=== PATIENT | female | born 1945 | race Caucasian/White ===

== ENCOUNTER → 2016-12-15 10:38 | Outpatient (CLI) | payer MEDICARE ==
[2016-01-28 06:18] VITALS: BMI 21.6
[~2016-12-15 10:38] MED LIST: AGGRENOX 200/251 CAP PO; ANOLOR-300 CAPS1 CAP PO; ASPIRIN EC325 M1 PO; BENTYL 20 MG TA20 MG PO; BREO ELLIPTA 11 EACH INH; COMBIVENT RESPIM4 GM INH; COZAAR50 MG PO; DEMEROL50 MG PO; FERREX 150 PLUS1 CAP PO; IBUPROFEN800 MG PO; IMITREX50 MG PO; LEVAQUIN750 MG PO; LEXAPRO10 MG PO; LIDOCAINE50 GM TOPICAL; LIPITOR20 MG PO; MELATONIN 10 M1 EACH PO; NICODERM C1 PATCH .2 TRANSDERM; NORVASC10 MG PO; PEPCID40 MG PO; PHENERGAN25 M1 PO; PRILOSEC20 MG PO; ROXICODONE30 MG PO; SPIRIVA18 MCG INH; TEGRETOL200 MG PO; TOPAMAX50 MG PO; TRIAMCINOLONE A60 M1 TP; VITAMIN C1000 MG PO; VITAMIN D31000 UNI2 PO; XANAX1 MG PO; ZANAFLEX4 MG PO; ZYRTEC10 MG PO
== END | disposition home or self-care (01) ==
LOC: D.MRI 10:38
DX: G43.019 Migraine without aura, intractable, without status migrainosus (principal)

== ENCOUNTER → 2017-01-08 13:05 | Outpatient (CLI) | payer MEDICARE ==
[2016-01-28 06:18] VITALS: BMI 21.6
== END | disposition home or self-care (01) ==
LOC: D.MRI 13:05
DX: M54.2 Cervicalgia (principal)

== ENCOUNTER 2017-02-05 21:35 | Emergency (ER) | payer MEDICARE ==
[2016-01-28 06:18] VITALS: BMI 21.6
[~2017-02-05 21:35] MED LIST changes: -ANOLOR-300 CAPS1 CAP PO; -FERREX 150 PLUS1 CAP PO; -IMITREX50 MG PO; -LEVAQUIN750 MG PO; -LIDOCAINE50 GM TOPICAL; -NICODERM C1 PATCH .2 TRANSDERM; -TOPAMAX50 MG PO; -VITAMIN D31000 UNI2 PO; -ZANAFLEX4 MG PO
[2017-02-05 22:53] LABS: BASOPHILS 0.1 % (0.0-2.0); EOSINOPHILS 0.3 % (0-7); HEMATOCRIT 36.2 % (36.0-48.0); IMMATURE GRANULOCYTES 0.1 % (0-5); MCH 28.8 pg (26.0-34.0); MCHC 33.1 g/dL (31.0-37.0); MCV 86.8 fL (80.0-100.0); MEAN PLATELET VOLUME 9.4 fL (7.4-10.4); MONOCYTES 8.1 % (2-11); NEUTROPHILS 81.4 % (40-80); RBC 4.17 10x6/uL (4.00-5.40); WBC 7.8 10x3/uL (4.8-10.8)
[2017-02-05 23:09] LABS: ALBUMIN 3.2 g/dL (3.4-5.0); ALKALINE PHOSPHATASE 137 U/L (46-116); ALT (SGPT) 34 U/L (10-68); BILIRUBIN - TOTAL 0.21 mg/dL (0.2-1.3); CALC OSMOLALITY 275 mosm/kg (275-300); CALCIUM 8.5 mg/dL (8.5-10.1); CARBON DIOXIDE 23.4 mmol/L (21.0-32.0); CHLORIDE - SERUM 104 mmol/L (98-107); CREATININE - SERUM 1.1 mg/dL (0.6-1.3); GLUCOSE 104 mg/dL (74-106); POTASSIUM - SERUM 3.7 mmol/L (3.5-5.1); SODIUM 137 mmol/L (136-145); UREA NITROGEN 17 mg/dL (7-18); eGFR NON AFRICAN AMERICAN 52 mL/min (90-120)
[2017-02-05 23:12] LABS: PLATELET COUNT 193 10x3/uL (130-400)
[2017-02-05 23:18] LABS: PRO BNP 1406 pg/mL (0-125); TROPONIN-I < 0.017 ng/mL (0.000-0.060)
[2017-02-05 23:45] LABS: APPEARANCE CLEAR (CLEAR); BILIRUBIN NEGATIVE (NEGATIVE); COLOR YELLOW (YELLOW); GLUCOSE NEGATIVE (NEGATIVE); KETONE NEGATIVE (NEGATIVE); LEUKOCYTE ESTERASE TRACE (NEGATIVE); NITRITE NEGATIVE (NEGATIVE); PROTEIN 1+ mg/dL (NEGATIVE); UROBILINOGEN NORMAL (NORMAL)
[2017-02-05 23:49] LABS: AMORPHOUS SEDIMENT <1+ /lpf (NONE SEEN); BACTERIA FEW /hpf (NONE SEEN); EPITHELIAL CELLS OCC /hpf (0-5); GRANULAR CAST RARE /lpf (NONE SEEN); HYALINE CAST OCC /lpf (NONE SEEN); MUCUS <1+ /lpf (NONE SEEN); WHITE CELLS - URINE 0-5 /hpf (0-5)
== END 2017-02-06 00:24 | disposition home or self-care (01) ==
LOC: D.ER 21:35
PROVIDERS: Family Medicine
DX: B34.9 Viral infection, unspecified (principal); J44.9 Chronic obstructive pulmonary disease, unspecified; K21.9 Gastro-esophageal reflux disease without esophagitis; C51.9 Malignant neoplasm of vulva, unspecified

== ENCOUNTER 2017-02-11 19:52 | Emergency (ER) | payer MEDICARE ==
[2016-01-28 06:18] VITALS: BMI 21.6
[2017-02-11 21:01] LABS: BASOPHILS 0.1 % (0.0-2.0); EOSINOPHILS 0.8 % (0-7); HEMATOCRIT 35.2 % (36.0-48.0); HEMOGLOBIN 11.9 g/dL (12-16); IMMATURE GRANULOCYTES 0.2 % (0-5); LYMPHOCYTES 5.9 % (15-50); MCH 29.3 pg (26.0-34.0); MCHC 33.8 g/dL (31.0-37.0); MCV 86.7 fL (80.0-100.0); MEAN PLATELET VOLUME 9.6 fL (7.4-10.4); MONOCYTES 6.1 % (2-11); NEUTROPHILS 86.9 % (40-80); RBC 4.06 10x6/uL (4.00-5.40); RDW 15.2 % (11.5-14.5); WBC 13.7 10x3/uL (4.8-10.8)
[2017-02-11 21:03] LABS: PLATELET COUNT 288 10x3/uL (130-400)
== END 2017-02-11 21:39 | disposition home or self-care (01) ==
LOC: D.ER 19:52
PROVIDERS: Nurse Practitioner Acute Care
DX: J44.1 Chronic obstructive pulmonary disease with (acute) exacerbation (principal); K21.9 Gastro-esophageal reflux disease without esophagitis; N28.9 Disorder of kidney and ureter, unspecified; C51.9 Malignant neoplasm of vulva, unspecified; F17.200 Nicotine dependence, unspecified, uncomplicated

== ENCOUNTER 2017-02-13 06:55 | Inpatient (IN) | payer MEDICARE ==
[~2017-02-13] VITALS: Ht 165.1 cm; Wt 55.9 kg
[2017-02-13 10:29] LABS: BASOPHILS 0.1 % (0.0-2.0); EOSINOPHILS 0.1 % (0-7); HEMATOCRIT 31.9 % (36.0-48.0); HEMOGLOBIN 10.6 g/dL (12-16); IMMATURE GRANULOCYTES 0.3 % (0-5); LYMPHOCYTES 3.5 % (15-50); MCH 28.9 pg (26.0-34.0); MCHC 33.2 g/dL (31.0-37.0); MCV 86.9 fL (80.0-100.0); MEAN PLATELET VOLUME 9.4 fL (7.4-10.4); MONOCYTES 3.5 % (2-11); NEUTROPHILS 92.5 % (40-80); PLATELET COUNT 424 10x3/uL (130-400); RBC 3.67 10x6/uL (4.00-5.40); RDW 14.9 % (11.5-14.5); WBC 21.1 10x3/uL (4.8-10.8)
[2017-02-13 10:37] LABS: ALBUMIN 2.8 g/dL (3.4-5.0); BILIRUBIN - TOTAL 0.35 mg/dL (0.2-1.3); CALCIUM 9.1 mg/dL (8.5-10.1); CARBON DIOXIDE 23.6 mmol/L (21.0-32.0); POTASSIUM - SERUM 3.6 mmol/L (3.5-5.1); PROTEIN - SERUM 7.7 g/dL (6.4-8.2)
[2017-02-13] MEDS ORDERED: IMITREX50 MG PO (13:25)
[2017-02-13] MEDS ORDERED: ANOLOR-300 CAPS1 CAP PO (13:26)
[2017-02-13] MEDS ORDERED: LIPITOR20 MG PO (13:27)
[2017-02-13] MEDS ORDERED: ZANAFLEX4 MG PO (13:27)
[2017-02-13] MEDS ORDERED: LIDOCAINE50 GM TOPICAL (13:28)
[2017-02-13] MEDS ORDERED: LEXAPRO10 MG PO (13:32)
[2017-02-13] MEDS ORDERED: TOPAMAX50 MG PO (13:34)
[2017-02-13] MEDS ORDERED: VITAMIN D31000 UNI2 PO (13:34)
[2017-02-13] MEDS ORDERED: LEVAQUIN750 MG PO (13:36)
[2017-02-13 14:32] VITALS: BP 127/83; BMI 22.5
--- NOTE | 2017-02-13 15:20 | NUR ---
ARRIVE TO ROOM VIA WHEELCHAIR FROM ER. ALERT AND ORIENTED X4. HOME MEDICATIONS TAKEN IN ER PER ER DOCTOR. LT FA IV SL. BATES. GAIT STEADY. MED REC COMPLETE PER PATIENT HOME PRINTOUT. REFUSE SCDs. CONTINUE ADMISSION PROCESS. CONTINUE PLAN OF CARE AND SAFETY PRECAUTIONS.
[2017-02-13 16:18] VITALS: BP 154/79
[2017-02-13 19:11] LABS: % SATURATION 7 % (15-55); IRON 19 ug/dl (35-150); TOTAL IRON BIND CAPACITY 264 ug/dl (260-445); UNSAT IRON BIND CAPACITY 245 ug/dl (150-375)
--- NOTE | 2017-02-13 19:40 | NUR ---
PT RECEIVED LYING IN BED WITH FAMILY AT BEDSIDE AT THIS TIME. ASSESSMENT COMPLETED PER FLOW SHEET AT THIS TIME. PT DENIES NEEDS AT THIS TIME. BED LOW. PHONE AND CALL LIGHT IN REACH. SRX2.
[2017-02-13 20:00] VITALS: BP 141/62
--- NOTE | 2017-02-13 21:55 | NUR ---
PM MEDS GIVEN AT THIS TIME. PT DENIES NEEDS AT THIS TIME. BED LOW. PHONE AND CALL LIGHT IN REACH. SRX2.
[2017-02-14] VITALS: BP 117/71
--- NOTE | 2017-02-14 00:35 | NUR ---
PT RESTING QUIETLY AT THIS TIME WITH EYES CLOSED. RESPIRATIONS EVEN, NON-LABORED. NO ACUTE DISTRESS NOTED AT THIS TIME. BED LOW. PHONE AND CALL LIGHT IN REACH. SRX2.
--- NOTE | 2017-02-14 02:18 | NUR ---
PT RESTING QUIETLY AT THIS TIME WITH EYES CLOSED. RESPIRATIONS EVEN, NON-LABORED. NO ACUTE DISTRESS NOTED AT THIS TIME. BED IN LOWEST. PHONE AND CALL LIGHT IN REACH. SRX2.
--- NOTE | 2017-02-14 02:41 | NUR ---
PT SITTING UP IN BED WITH FAMILY AT BEDSIDE. REQUESTS ICE WATER AND SPRITE. ADMINISTERED SOLU-MEDROL IVP PER ORDERS AT THIS TIME. DENIES OTHER NEEDS. BED LOW. PHONE AND CALL LIGHT IN REACH. SRX2.
[2017-02-14 04:00] VITALS: BP 116/73
[2017-02-14 04:39] LABS: BASOPHILS 0 % (0.0-2.0); EOSINOPHILS 0 % (0-7); HEMATOCRIT 31.8 % (36.0-48.0); HEMOGLOBIN 10.6 g/dL (12-16); IMMATURE GRANULOCYTES 0.2 % (0-5); LYMPHOCYTES 5.8 % (15-50); MCH 28.6 pg (26.0-34.0); MCHC 33.3 g/dL (31.0-37.0); MCV 85.9 fL (80.0-100.0); MEAN PLATELET VOLUME 9.2 fL (7.4-10.4); MONOCYTES 6.1 % (2-11); NEUTROPHILS 87.9 % (40-80); PLATELET COUNT 349 10x3/uL (130-400); RDW 14.5 % (11.5-14.5)
[2017-02-14 05:03] LABS: WBC 12.6 10x3/uL (4.8-10.8)
[2017-02-14 05:22] LABS: ANION GAP 14.3 mmol/L (8-16); CALCIUM 8.9 mg/dL (8.5-10.1); CREATININE - SERUM 1.1 mg/dL (0.6-1.3); POTASSIUM - SERUM 3.3 mmol/L (3.5-5.1)
--- NOTE | 2017-02-14 06:00 | NUR ---
ADMINISTERED AM MEDS AT THIS TIME. PT REFUSED TOPIRAMATE. STATES SHE HAD 3 SEIZURES AFTER STARTING TOPIRMATE. ADDED TO HER ALLERGY LIST AT THIS TIME. PT DENIES NEEDS AT THIS TIME. BED LOW. PHONE AND CALL LIGHT IN REACH. SRX2.
[2017-02-14 08:00] VITALS: BP 161/80
[2017-02-14 12:00] VITALS: BP 156/80
--- NOTE | 2017-02-14 12:42 | NUR ---
PT IS ALERT. ASSESSMENT DONE PER FLOWSHEET. NO OTHER NEEDS AT THIS TIME. WILL CONTRINUE TO MONITOR.
[2017-02-14 14:07] VITALS: Ht 165.1 cm; Wt 55.9 kg
[2017-02-14 17:21] VITALS: BP 153/80
--- NOTE | 2017-02-14 17:43 | NUR ---
PT IS ALERT. NO SS OF DISTRESS AT THIS ITME. WILL CONTINUE TO MONITOR.
[2017-02-14 20:00] VITALS: BP 146/66
[2017-02-15] VITALS: BP 122/60
--- NOTE | 2017-02-15 00:21 | NUR ---
ASSESSMENT COMPLETE, PT SEEMS CONFUSED, WHEN ASK FOR PAIN MEDS, I EXPLAINED THEY ARE ORDER QID (THATS @6HRS), SHE SAID AT HOME SHE TAKES TID ( Q4HRS) SPOKE WITH JAEL CANAS WAS TOLD TO GIVE AT 2200, 02-2L, IV-RFA, PT SAID I WAS BEING UGLY TO HER, FAMILY STATES I WASN'T, FAMILY STAYING IN ROOM ALL NIGHT , BED IS LOW, SRX2, BED ALARM IS ON, CALL LIGHT IN REACH, WILL CONTINUE TO MONITOR
--- NOTE | 2017-02-15 00:35 | NUR ---
TRIMMER SORTER AT BEDSIDE TO OBTAIN VITALS, CALL LIGHT IN REACH. WILL CONTINUE WITH PLAN OF CARE.
--- NOTE | 2017-02-15 03:09 | NUR ---
PT PULLED IV OUT OF R. FA, RESITED IN L. FA 1st ATTEMP 22
[2017-02-15 04:00] VITALS: BP 137/72
[2017-02-15 05:41] LABS: BASOPHILS 0.1 % (0.0-2.0); EOSINOPHILS 0.1 % (0-7); HEMATOCRIT 30.8 % (36.0-48.0); HEMOGLOBIN 10.2 g/dL (12-16); IMMATURE GRANULOCYTES 0.5 % (0-5); MCH 28.3 pg (26.0-34.0); MCHC 33.1 g/dL (31.0-37.0); MCV 85.6 fL (80.0-100.0); MEAN PLATELET VOLUME 9.4 fL (7.4-10.4); MONOCYTES 9.9 % (2-11); NEUTROPHILS 80.4 % (40-80); PLATELET COUNT 378 10x3/uL (130-400); RDW 14.4 % (11.5-14.5); WBC 12.1 10x3/uL (4.8-10.8)
[2017-02-15 05:52] LABS: ANION GAP 14.1 mmol/L (8-16); CALCIUM 8.6 mg/dL (8.5-10.1); CARBON DIOXIDE 25.6 mmol/L (21.0-32.0); CREATININE - SERUM 0.9 mg/dL (0.6-1.3); POTASSIUM - SERUM 3.7 mmol/L (3.5-5.1)
--- NOTE | 2017-02-15 07:49 | NUR ---
AM ROUNDS- PT RESTING IN BED AND APPEARS TO BE SLEEPING WITH EQUAL AND NONLABORED BREATHING. FAMILY MEMBER AT BEDSIDE. NO NEEDS AT THIS TIME.
[2017-02-15 08:13] VITALS: BP 158/81
[2017-02-15 08:21] LABS: FOLATE (FOLIC ACID) - SERUM 13.8 ng/mL (>3.0)
--- NOTE | 2017-02-15 10:22 | NUR ---
PT REQUESTED HER PAIN MEDICATION. PT STATES THAT SHE IS NOT IN PAIN AND WANTS IT A PREVINITIVE FOR PAIN. WILL CONTINUE TO MONITOR.
--- NOTE | 2017-02-15 10:28 | NUR ---
BOX BED ALWARM WAS PLACED THIS MORNING. PT REFUSSES THE BOX BED ALARM TO BE ATTACHED TO HER SHIRT. FAMILY MEMBER AT BEDSIDE. WILL CONTINUE TO MONITOR.
--- NOTE | 2017-02-15 10:44 | NUR ---
PT REFUSSED TO WEAR NON SKID SOCK. STATES THAT THEY ARE TOO BIG AND HAS HER SLIPPERS. FAMILY MEMBER AT SIDE. WILL CONTINUE TO MONITOR.
[2017-02-15 11:38] VITALS: BP 159/69
--- NOTE | 2017-02-15 13:05 | NUR ---
1300-STARTED PT LEVAQUIN AND PT STATES THAT SHE IS STARTING TO SEE "SPOTS" ON THE WALL. I STOPED THE LEVAQUIN AND FLUSHED THE IV. PT DOES NOT WANT THE LEVAQUIN AT THIS TIME. FAMILY MEMBER AT BEDSIDE. WILL CONTINUE TO MONITOR.
[2017-02-15 14:24] LABS: HEMOGLOBIN A1C 5.3 % (4.8-6.0)
--- NOTE | 2017-02-15 15:12 | NUR ---
IV LEVAQUIN RE-STARTED PER DR HANLEY'S ORDERS.
--- NOTE | 2017-02-15 15:27 | NUR ---
Patient Name: JO ANN IZQUIERDO Admission Status: ER Accout number: [id number] Admission Date: 02-13-2017 : 1945 Admission Diagnosis:SHORTNESS OF BREATH Attending: CECI Current LOS: 2 Anticipated DC Date: 02-15-2017 Planned Disposition: Home Primary Insurance: MEDICARE A & B Discharge Planning Comments: * Is the patient Alert and Oriented? Yes 0 * How many steps to enter\exit or inside your home? NONE 0 * PCP DR. OLIVO 0 * Pharmacy [facility] * Preadmission Environment Home with Family 0 * ADLs Independent 0 * Equipment Shower Chair Walker 0 * Other Equipment NO MEDICAL EQUIPMENT PROVIDER PREFERENCE 0 * List name and contact numbers for known caregivers / representatives who currently or will assist patient after discharge: CAREY IZQUIERDO, SPOUSE, , 0 * Community resources currently utilized None 0 * Please name any agencies selected above. NONE 0 * Additional services required to return to the preadmission environment? No 0 * Can the patient safely return to the preadmission environment? Yes 0 CM MET WITH PT IN ROOM TO DISCUSS DISCHARGE PLANNING AND NEEDS. PT REPORTS LIVING AT HOME INDEPENDENTLY WITH HER SPOUSE. PT HAS WALKER AND SHOWER CHAIR AT HOME WITH NO MEDICAL EQUIPMENT PROVIDER PREFERENCE. PT HAS NO OUTSIDE SERVICES ASSISTING IN THE HOME. CM DISCUSSED AVAILABILITY OF HOME HEALTH, REHAB SERVICES AND MEDICAL EQUIPMENT. PT DENIES DISCHARGE NEEDS, REPORTS HER SPOUSE WILL PICK HER UP FOR DISCHARGE HOME. Ed Case Manager: Aren Medeiros
--- NOTE | 2017-02-15 19:21 | NUR ---
PATIENT RESTING IN SEMI-FOWLERS POSITION WITH GUEST AT BEDSIDE. PATIENT DENIES NEEDS AT THIS TIME. BED IN LOWEST POSITION AND CALL LIGHT WITHIN REACH. ENCOURAGED PATIENT TO CALL IF SHE HAS NEEDS.
[2017-02-15 20:00] VITALS: BP 176/79
[2017-02-16] VITALS: BP 132/81
[2017-02-16 04:00] VITALS: BP 159/68
[2017-02-16 05:41] LABS: BASOPHILS 0.1 % (0.0-2.0); EOSINOPHILS 0 % (0-7); HEMATOCRIT 33.5 % (36.0-48.0); IMMATURE GRANULOCYTES 0.5 % (0-5); LYMPHOCYTES 9.3 % (15-50); MCH 28.4 pg (26.0-34.0); MCHC 32.8 g/dL (31.0-37.0); MCV 86.6 fL (80.0-100.0); MEAN PLATELET VOLUME 9.4 fL (7.4-10.4); NEUTROPHILS 83.1 % (40-80); PLATELET COUNT 383 10x3/uL (130-400); RBC 3.87 10x6/uL (4.00-5.40); RDW 14.4 % (11.5-14.5); WBC 9.5 10x3/uL (4.8-10.8)
[2017-02-16 05:55] LABS: CALC OSMOLALITY 279 mosm/kg (275-300); CARBON DIOXIDE 29.5 mmol/L (21.0-32.0); CHLORIDE - SERUM 102 mmol/L (98-107); CREATININE - SERUM 0.8 mg/dL (0.6-1.3); GLUCOSE 130 mg/dL (74-106); MAGNESIUM - SERUM 1.7 mg/dL (1.8-2.4); PHOSPHOROUS 3.3 mg/dL (2.5-4.9); POTASSIUM - SERUM 3.8 mmol/L (3.5-5.1); SODIUM 139 mmol/L (136-145); UREA NITROGEN 12 mg/dL (7-18); eGFR NON AFRICAN AMERICAN 75 mL/min (90-120)
--- NOTE | 2017-02-16 08:01 | NUR ---
AM ROUNDING DONE WITH PATIENT APPEARING TO BE ASLEEP. ON 2L PER NC. ON HEART MONITOR SHOWING SR, HR 73. LEFT FA SEEN WITH SALINE LOCK. ON EP, MAG WAS DOWN. ORAL SUPPLEMENT WAS GIVEN, WILL GIVE ANOTHER.
[2017-02-16 08:31] VITALS: BP 171/90
--- NOTE | 2017-02-16 09:15 | NUR ---
STOOL AND URINE SENT TO LAB.
[2017-02-16 10:26] LABS: APPEARANCE CLEAR (CLEAR); BILIRUBIN NEGATIVE (NEGATIVE); COLOR YELLOW (YELLOW); GLUCOSE NEGATIVE (NEGATIVE); KETONE NEGATIVE (NEGATIVE); LEUKOCYTE ESTERASE NEGATIVE (NEGATIVE); NITRITE NEGATIVE (NEGATIVE); PROTEIN NEGATIVE (NEGATIVE); UROBILINOGEN NORMAL (NORMAL)
[2017-02-16 10:27] LABS: BACTERIA FEW /hpf (NONE SEEN); EPITHELIAL CELLS 0-5 /hpf (0-5); RED CELLS - URINE 0-5 /hpf (0-5); WHITE CELLS - URINE 0-5 /hpf (0-5)
[2017-02-16 10:28] LABS: HYALINE CAST RARE /lpf (NONE SEEN)
[2017-02-16] MEDS ORDERED: NICODERM C1 PATCH .2 TRANSDERM (12:45)
[2017-02-16] MEDS ORDERED: LEVAQUIN750 MG PO (12:45)
[2017-02-16 12:47] VITALS: BP 140/78
[2017-02-16] MEDS ORDERED: FERREX 150 PLUS1 CAP PO (12:48)
--- NOTE | 2017-02-16 14:06 | NUR ---
HEART MONITOR TAKEN OFF PATIENT AND TURNED IN AND PATIENT IS GETTING DRESSED. WILL REMOVE IV WHEN D/C ISNTRUCTIONS GIVEN.
--- NOTE | 2017-02-16 14:33 | NUR ---
VERBAL AND WRITTEN DISCHARGE INSTRUCITONS GIVEN TO PATIENT AND S.O.. SALINE LOCK REMOVED WITH CATH TIP INTACT. DISCHARGED HOME VIA WHEELCHAIR.
--- NOTE | 2017-02-16 17:18 | NUR ---
Patient Name: JO ANN IZQUIERDO Encounter No: [id number] : 1945 Primary Insurance: MEDICARE A & B Anticipated DC Date: 02-15-2017 Planned Disposition: Home External Planned Provider: : LATE ENTRY: DCP follow-up note: CM MET WITH PT IN ROOM TO DISCUSS DISCHARGE NEEDS AND PLANNING. CM DISCUSSED AVAILABILITY OF HOME HEALTH, REHAB SERVICES AND MEDICAL EQUIPMENT. PT DENIES DISCHARGE NEEDS. SPOUSE TO TRANSPORT HOME AT DISCHARGE. IMPORTANT MESSAGE FROM MEDICARE PROVIDED AND EXPLAINED. Aren Medeiros, CASE MANAGEMENT
== END 2017-02-16 15:03 | disposition home or self-care (01) | DRG 190 ==
LOC: D.ER 06:55 → D.M2 12:15
PROVIDERS: Emergency Medicine; ADMIT Family Medicine
DX: J44.0 Chronic obstructive pulmonary disease with (acute) lower respiratory infection (principal); J18.9 Pneumonia, unspecified organism; F17.203 Nicotine dependence unspecified, with withdrawal; J44.1 Chronic obstructive pulmonary disease with (acute) exacerbation; R51 Headache; D64.9 Anemia, unspecified; F41.9 Anxiety disorder, unspecified

== ENCOUNTER → 2017-06-18 13:31 | Outpatient (CLI) | payer MEDICARE ==
[2017-02-14 14:07] VITALS: BMI 22.4
[~2017-06-18 13:31] MED LIST changes: +ANOLOR-300 CAPS1 CAP PO; +FERREX 150 PLUS1 CAP PO; +IMITREX50 MG PO; +LEVAQUIN750 MG PO; +LIDOCAINE50 GM TOPICAL; +NICODERM C1 PATCH .2 TRANSDERM; +TOPAMAX50 MG PO; +VITAMIN D31000 UNI2 PO; +ZANAFLEX4 MG PO
== END | disposition home or self-care (01) ==
LOC: D.CT 13:31
DX: R91.8 Other nonspecific abnormal finding of lung field (principal)

== ENCOUNTER → 2017-07-04 15:37 | Outpatient (CLI) | payer MEDICARE ==
[2017-02-14 14:07] VITALS: BMI 22.4
== END | disposition home or self-care (01) ==
LOC: D.MRI 15:37
DX: M54.16 Radiculopathy, lumbar region (principal)

== ENCOUNTER → 2017-12-25 17:11 | Outpatient (CLI) | payer MEDICARE ==
[2017-02-14 14:07] VITALS: BMI 22.4
== END | disposition home or self-care (01) ==
LOC: D.MAMMO 10-16 16:15
DX: Z12.31 Encounter for screening mammogram for malignant neoplasm of breast (principal)

== ENCOUNTER → 2018-01-18 16:02 | Outpatient (CLI) | payer MEDICARE ==
[2017-02-14 14:07] VITALS: BMI 22.4
[~2018-01-18 16:02] MED LIST changes: +CYPROHEPTADINE H4 MG PO
== END | disposition home or self-care (01) ==
LOC: D.CT 12-20 10:30
DX: R91.8 Other nonspecific abnormal finding of lung field (principal)

== ENCOUNTER → 2018-03-22 11:05 | Outpatient (CLI) | payer MEDICARE ==
[2017-02-14 14:07] VITALS: BMI 22.4
== END | disposition home or self-care (01) ==
LOC: D.LAB 11:05
DX: M51.36 Other intervertebral disc degeneration, lumbar region (principal)

== ENCOUNTER → 2018-04-22 21:59 | Outpatient (CLI) | payer MEDICARE ==
[2017-02-14 14:07] VITALS: BMI 22.4
== END | disposition home or self-care (01) ==
LOC: D.LABREF 21:59
DX: R31.9 Hematuria, unspecified (principal)

== ENCOUNTER 2018-04-25 05:39 | Day surgery (SDC) | payer MEDICARE ==
[~2018-04-25] VITALS: Ht 165.1 cm; Wt 57.6 kg
--- NOTE | ~2018-04-25 | OP ---
PATIENT NAME: JO ANN IZQUIERDO MEDICAL RECORD: [id number] :[birth year] LOCATION:D.OPS ADMISSION DATE: SURGEON: CROW PATTEN MD DATE OF OPERATION: 04/25/2018 SURGEON: Crow Patten MD ANESTHESIA: MAC by Dr. Crow Chery. PREOPERATIVE DIAGNOSIS: Urethral stricture. PROCEDURE: Cystoscopy and urethral stricture dilation. FINDINGS: Single ureteral orifices bilaterally. No bladder tumors. Diffuse bladder inflammation. CLINICAL HISTORY: This is a 72-year-old female, who has previously had a vulvar resection for vulvar cancer. She has difficulty now voiding. She has trouble initiating a void and she has to strain in order to void. She has not had radiation treatments for the vulvar cancer. She has only had surgical excision. She comes today to have a urethral stricture dilation. She is allergic to LISINOPRIL, METOPROLOL, TERAZOSIN, ZINC, and TOPIRAMATE. She was given Ancef health information tech to the OR. DESCRIPTION OF PROCEDURE: The patient was given IV sedation. She was placed in the dorsal lithotomy position and prepped and draped. A 21-Divehi cystoscope with 30-degree lens was used for visualization. She has diffuse bladder inflammation, which makes me suspect that perhaps some of her symptoms are actually due to interstitial cystitis. No bladder tumors were seen. The bladder was then emptied through the cystoscope. We used sounds starting from 20-Divehi and increasing all the way up to 30-Divehi. Once the urethra was dilated, the procedure was terminated. The patient was awakened and brought back to the preoperative holding area. I will see her in 1 week's time to check on her voiding symptoms. If the dilation has not improved the voiding at all, then we should probably start intravesical Rimso instillations on her. TRANSINT:[id number] Voice Confirmation ID: [id number] DOCUMENT ID: [id number] CROW PATTEN MD at 0840 CC: [id number] DICTATION DATE: 04/25/18 0855 NOCTURNIST: 04/25/18 1123 [facility] 04/25/18 [place] [address]
[2018-04-25 06:04] LABS: HEMATOCRIT 38.1 % (36.0-48.0); HEMOGLOBIN 13.2 g/dL (12-16); MCH 30.9 pg (26.0-34.0); MCHC 34.6 g/dL (31.0-37.0); MCV 89.2 fL (80.0-100.0); MEAN PLATELET VOLUME 9.4 fL (7.4-10.4); RBC 4.27 10x6/uL (4.00-5.40); RDW 14.4 % (11.5-14.5); WBC 10.2 10x3/uL (4.8-10.8)
[2018-04-25 06:18] LABS: ANION GAP 12.3 mmol/L (8-16); CALCIUM 9.1 mg/dL (8.5-10.1); CARBON DIOXIDE 27.7 mmol/L (21.0-32.0)
[2018-04-25 07:09] VITALS: BP 139/76; Ht 165.1 cm; Wt 57.6 kg
[2018-04-25] MEDS ORDERED: AGGRENOX 200/251 CAP PO (07:28)
== END 2018-04-25 10:20 | disposition home or self-care (01) ==
LOC: D.OPS 05:39 → D.PAN 08:00 → D.OPS 10:20
PROVIDERS: Anesthesiology
DX: N35.9 Urethral stricture, unspecified (principal); K21.9 Gastro-esophageal reflux disease without esophagitis; I10 Essential (primary) hypertension; F17.200 Nicotine dependence, unspecified, uncomplicated; Z01.812 Encounter for preprocedural laboratory examination

== ENCOUNTER → 2018-05-01 18:58 | Outpatient (CLI) | payer MEDICARE ==
[2018-04-25 07:09] VITALS: BMI 21.1
== END | disposition home or self-care (01) ==
LOC: D.LABREF 18:58
DX: N39.0 Urinary tract infection, site not specified (principal)

== ENCOUNTER → 2018-06-06 16:36 | Outpatient (CLI) | payer MEDICARE ==
[2018-04-25 07:09] VITALS: BMI 21.1
[~2018-06-06 16:36] MED LIST changes: +CLARITIN 10 MG10 MG PO; +PREDNISONE20 MG PO
== END | disposition home or self-care (01) ==
LOC: D.CT 16:36
DX: F45.8 Other somatoform disorders (principal)

== ENCOUNTER 2018-07-21 14:35 | Emergency (ER) | payer MEDICARE ==
[~2018-07-21] VITALS: Ht 165.1 cm; Wt 56.8 kg
[~2018-07-21 14:35] MED LIST changes: -CLARITIN 10 MG10 MG PO; -PREDNISONE20 MG PO
[2018-07-21 15:06] VITALS: Ht 165.1 cm; Wt 56.8 kg
[2018-07-21] MEDS ORDERED: CLARITIN 10 MG10 MG PO (15:10)
[2018-07-21] MEDS ORDERED: PREDNISONE20 MG PO (17:21)
[2018-07-21 18:08] VITALS: BP 112/73
== END 2018-07-21 18:00 | disposition home or self-care (01) ==
LOC: D.ER 14:35
DX: M79.602 Pain in left arm (principal); M79.601 Pain in right arm; M25.50 Pain in unspecified joint; G40.909 Epilepsy, unspecified, not intractable, without status epilepticus; I10 Essential (primary) hypertension; J44.9 Chronic obstructive pulmonary disease, unspecified; Z85.89 Personal history of malignant neoplasm of other organs and systems; F17.200 Nicotine dependence, unspecified, uncomplicated

== ENCOUNTER → 2018-08-01 15:49 | Outpatient (CLI) | payer MEDICARE ==
[2018-07-21 15:06] VITALS: BMI 20.8
[~2018-08-01 15:49] MED LIST changes: +CLARITIN 10 MG10 MG PO; +PREDNISONE20 MG PO
[2018-08-01 17:14] LABS: BASOPHILS 0.4 % (0-2); EOSINOPHILS 7.7 % (0-7); HEMATOCRIT 32.1 % (36.0-48.0); HEMOGLOBIN 10.8 g/dL (12-16); IMMATURE GRANULOCYTES 0.4 % (0-5); LYMPHOCYTES 21.6 % (15-50); MCH 28.3 pg (26.0-34.0); MCHC 33.6 g/dL (31.0-37.0); MEAN PLATELET VOLUME 9.4 fL (7.4-10.4); MONOCYTES 10.3 % (2-11); NEUTROPHILS 59.6 % (40-80); RBC 3.82 10x6/uL (4.00-5.40); RDW 13.8 % (11.5-14.5); WBC 8.5 10x3/uL (4.8-10.8)
[2018-08-01 17:17] LABS: PLATELET COUNT 382 10x3/uL (130-400)
[2018-08-01 18:40] LABS: ERYTHROCYTE SEDIMENTATION RATE 62 mm/hr (0-30)
[2018-08-05 13:13] LABS: ANA REFLEX - DIRECT Negative (Negative)
== END | disposition home or self-care (01) ==
LOC: D.LAB 15:49
PROVIDERS: Internal Medicine Gastroenterology
DX: M06.4 Inflammatory polyarthropathy (principal)

== ENCOUNTER → 2018-08-05 10:11 | Outpatient (CLI) | payer MEDICARE ==
[2018-07-21 15:06] VITALS: BMI 20.8
== END | disposition home or self-care (01) ==
LOC: D.CT 05-31 16:30
DX: R31.21 Asymptomatic microscopic hematuria (principal)

== ENCOUNTER 2018-10-26 21:23 | Emergency (ER) | payer MEDICARE | END 2018-10-26 22:34 | disposition home or self-care (01) | LOC: D.ER 21:23 | DX: M54.2 Cervicalgia (principal); G40.909 Epilepsy, unspecified, not intractable, without status epilepticus ==

== ENCOUNTER 2018-11-16 20:29 | Emergency (ER) | payer MEDICARE ==
[~2018-11-16] VITALS: Ht 165.1 cm; Wt 55.5 kg
[2018-11-16 20:36] VITALS: Ht 165.1 cm; Wt 55.5 kg
[2018-11-16] MEDS ORDERED: CYCLOBENZAPRINE10 MG PO (21:33)
[2018-11-16 21:50] VITALS: BP 171/76
== END 2018-11-16 21:50 | disposition home or self-care (01) ==
LOC: D.ER 20:29
DX: M25.531 Pain in right wrist (principal); M19.031 Primary osteoarthritis, right wrist; G40.909 Epilepsy, unspecified, not intractable, without status epilepticus; I10 Essential (primary) hypertension; J44.9 Chronic obstructive pulmonary disease, unspecified; F17.200 Nicotine dependence, unspecified, uncomplicated

== ENCOUNTER 2019-01-10 14:12 | Inpatient (IN) | payer MEDICARE ==
[~2019-01-10] VITALS: Ht 165.1 cm; Wt 56.7 kg
[~2019-01-10 14:12] MED LIST changes: +CYCLOBENZAPRINE10 MG PO
[2019-01-10 16:15] LABS: HEMATOCRIT 33.4 % (36.0-48.0); HEMOGLOBIN 11.3 g/dL (12-16); MCH 28.5 pg (26.0-34.0); MCHC 33.8 g/dL (31.0-37.0); MCV 84.1 fL (80.0-100.0); RBC 3.97 10x6/uL (4.00-5.40); RDW 17.8 % (11.5-14.5); WBC 23.2 10x3/uL (4.8-10.8)
[2019-01-10 16:16] LABS: MEAN PLATELET VOLUME 9.3 fL (7.4-10.4); PLATELET COUNT 299 10x3/uL (130-400)
[2019-01-10 16:18] LABS: ALBUMIN 2.9 g/dL (3.4-5.0); ANION GAP 15.2 mmol/L (8-16); BILIRUBIN - TOTAL 0.25 mg/dL (0.2-1.3); CALCIUM 8.5 mg/dL (8.5-10.1); CARBON DIOXIDE 22.2 mmol/L (21.0-32.0); CREATININE - SERUM 0.8 mg/dL (0.6-1.3); POTASSIUM - SERUM 4.4 mmol/L (3.5-5.1); PROTEIN - SERUM 7.1 g/dL (6.4-8.2)
[2019-01-10 18:47] LABS: LYMPHOCYTES 9 % (15-50); MONOCYTES 2 % (2-11); NEUTROPHILS 89 % (40-80); PLATELET ESTIMATE NORMAL
--- NOTE | 2019-01-10 20:45 | NUR ---
PT TO FLOOR VIA BED ACCOMPANIED BY STAFF FROM ER AND SPOUSE. PT A/O X4, RR EVEN AND UL. PIV IN L WRIST PATENT, WITH IV VANC AND NS NOT INFUSING UPON ARRIVAL. PT FIDGETING AND STATES SHE HAS PAIN IN HER HANDS. PT APPEARS MILDY ANXIOUS. EDUCATED PT AND SPOUSE THAT ALL IMAGING LABS CAME BACK NORMAL AND WBC IS ELEVATED. PT AND SPOUSE VERBALIZED UNDERSTANDING. BEGAN NS AND VANC INFUSION PER MD ORDERS. SET UP MORPHINE DECK OFFICER PER ORDERS. ADMINISTERED BOLUS WITH STEPHANY BLANDON. PT CONSTANTLY TRYING TO GET OUT OF BED. SOFIYA ALARM PUT ON BED AND FALL PRECUATIONS IN TACT. NOTIFIED DR. ESPANA IN ER VIA PROTOCOL FOR DR. COE PTS. ORDERED ATIVAN 1MG Q4PRN PER MD. UPON ADMINISTRATION OF ATIVAN AND MORPHINE BOLUS, PT APPEARS MORE CALM. EDUCATED PT ON USE OF MORPHINE DECK OFFICER BUTTON. PT AND SPOUSE VERBALIZED UNDERSTANDING. NO FURTHER NEEDS NOTED AT THIS TIME. CL IN REACH, SR UP X2, BED IN LOWEST POSITION, FALL PRECAUTIONS IN PLACE, SPOUSE AT BEDSIDE. WCTM AND FOLLOW POC.
[2019-01-11] VITALS (7 sets, daily range): BP systolic 147–179; BP diastolic 52–80; Ht 165.1 cm; Wt 56.7 kg
--- NOTE | 2019-01-11 03:45 | NUR ---
TO PT ROOM VIA CALL LIGHT. PT STATES PAIN OF 8/10. ADMINISTERED PRESCRIBED ANALGESIC FOR PAIN. NO OTHER NEEDS NOTED AT THIS TIME. RR EVEN AND UL ON 4L O2 VIA HFNC. CL IN REACH, SR UP X2, BED IN LOWEST POSITION, DAUGHTER AT BEDSIDE.
[2019-01-11 06:49] LABS: BASOPHILS 0.1 % (0-2); EOSINOPHILS 0.1 % (0-7); HEMOGLOBIN 10.6 g/dL (12-16); IMMATURE GRANULOCYTES 0.3 % (0-5); LYMPHOCYTES 3.8 % (15-50); MCH 27.8 pg (26.0-34.0); MCHC 33.1 g/dL (31.0-37.0); MEAN PLATELET VOLUME 9.1 fL (7.4-10.4); MONOCYTES 6.9 % (2-11); NEUTROPHILS 88.8 % (40-80); PLATELET COUNT 294 10x3/uL (130-400); RBC 3.81 10x6/uL (4.00-5.40); RDW 18.1 % (11.5-14.5); WBC 19.1 10x3/uL (4.8-10.8)
[2019-01-11 06:51] LABS: ALBUMIN 2.6 g/dL (3.4-5.0); ANION GAP 13.8 mmol/L (8-16); BILIRUBIN - TOTAL 0.54 mg/dL (0.2-1.3); CALCIUM 8.4 mg/dL (8.5-10.1); CREATININE - SERUM 0.8 mg/dL (0.6-1.3); MAGNESIUM - SERUM 1.5 mg/dL (1.8-2.4); POTASSIUM - SERUM 3.8 mmol/L (3.5-5.1); PROTEIN - SERUM 6.6 g/dL (6.4-8.2)
--- NOTE | 2019-01-11 08:11 | NUR ---
PT ALERT X 4 BUT LETHARGIC. BREATH SOUNDS CLEAR BILAT. PT REPORTING PAIN OF 5/10, WILL MONITOR. FAMILY AT BEDSIDE. ENCOURAGED PT TO LAY BACK BEFORE SHE FELL ASLEEP ON SIDE OF BED. IV TO LEFT WRIST, PATENT, DRESSING CLEAN DRY AND INTACT. BED LOW, CALL LIGHT IN REACH. NO OTHER NEEDS AT THIS TIME.
--- NOTE | 2019-01-11 09:29 | NUR ---
rehab prescreen: we received the consult and will monitor the patient and see how she progresses with therapy and what the intial work up will show. thank you for this eval. shaina crum lpn clinical liasion
[2019-01-11 13:55] LABS: T4 THYROXINE 6.4 ug/dL (4.7-13.3); THYROID STIMULATING HORMONE 2.06 uIU/mL (0.36-3.74)
--- NOTE | 2019-01-11 16:02 | NUR ---
PT CAUGHT SMOKING IN ROOM. UNDERTAKER ASSISTANT TAKEN AWAY AND PT INSTRUCTED NOT TO SMOKE IN FACILITY. POWERHOUSE LABORER NOTIFIED.
[2019-01-11 16:52] LABS: APPEARANCE CLEAR (CLEAR); BILIRUBIN NEGATIVE (NEGATIVE); COLOR YELLOW (YELLOW); EPITHELIAL CELLS 0-5 /hpf (0-5); GLUCOSE NEGATIVE (NEGATIVE); KETONE NEGATIVE (NEGATIVE); NITRITE NEGATIVE (NEGATIVE); PROTEIN 1+ mg/dL (NEGATIVE); RED CELLS - URINE 0-5 /hpf (0-5); UROBILINOGEN NORMAL (NORMAL); WHITE CELLS - URINE NSEEN /hpf (0-5)
[2019-01-11 19:27] LABS: CREATININE - URINE 32.6 mg/dL (30-125); PRO/CRE RATIO URINE 1.2 mg/g; PROTEIN - URINE 38.2 mg/dL (0.0-11.9)
--- NOTE | 2019-01-11 19:40 | NUR ---
RECEIVED REPORT, ASSUMED CARE, AT BEDSIDE, DENIES NEEDS, CALL LIGHT IN REACH, BED LOWEST POSITION, PT REPOSITIONED, WILL CONTINUE POC
--- NOTE | 2019-01-12 03:56 | NUR ---
RN NOTE: AGREE WITH MARK UP DESIGNER ASSESSMENT.
[2019-01-12 06:53] LABS: BASOPHILS 0.1 % (0-2); EOSINOPHILS 0.2 % (0-7); HEMATOCRIT 29.6 % (36.0-48.0); HEMOGLOBIN 9.7 g/dL (12-16); IMMATURE GRANULOCYTES 0.3 % (0-5); LYMPHOCYTES 7.3 % (15-50); MCH 27.8 pg (26.0-34.0); MCHC 32.8 g/dL (31.0-37.0); MCV 84.8 fL (80.0-100.0); MEAN PLATELET VOLUME 9.1 fL (7.4-10.4); MONOCYTES 8.9 % (2-11); NEUTROPHILS 83.2 % (40-80); PLATELET COUNT 249 10x3/uL (130-400); RBC 3.49 10x6/uL (4.00-5.40); RDW 18.4 % (11.5-14.5); WBC 14.7 10x3/uL (4.8-10.8)
[2019-01-12 06:57] LABS: ALBUMIN 2.2 g/dL (3.4-5.0); ANION GAP 16.7 mmol/L (8-16); BILIRUBIN - TOTAL 0.42 mg/dL (0.2-1.3); CALCIUM 8.6 mg/dL (8.5-10.1); CREATININE - SERUM 0.8 mg/dL (0.6-1.3); MAGNESIUM - SERUM 1.8 mg/dL (1.8-2.4); POTASSIUM - SERUM 3.7 mmol/L (3.5-5.1); PROTEIN - SERUM 6.3 g/dL (6.4-8.2)
[2019-01-12 09:41] VITALS: BP 168/81
--- NOTE | 2019-01-12 12:10 | NUR ---
INSTRUCTED FAMILY NOT TO PUSH SOCIAL WORK MSW BUTTON. INFORMED PT THAT ONLY SHE IS ALLOWED TO CONTROL SOCIAL WORK MSW. BED ALARM CONFIRMED TURNED ON. INSTRUCTED PT NOT TO GET UP UNLESS ASSISTED BY PHYSICAL THERAPY AND ALSO INFORMED FAMILY OF PHYSICAL THERAPY ASSIST AMBULATION ONLY. . FAMILY CONTINUES TO GET PT OUT OF BED AGAINST ADVICE AND CONTINUES TO HIT SOCIAL WORK MSW BUTTON. PT AND FAMILY IS UNCOOPERATIVE IN PROVIDING EFFECTIVE PT CARE.
[2019-01-12 14:08] VITALS: BP 185/86
--- NOTE | 2019-01-12 17:03 | NUR ---
PT STATES THAT SHE HAS A TERRIBLE HEADACHE. OFFERED HER EITHER HE FIORICET OR HER IMITREX. SHE DECLINED BOTH AND STATED THOSE WERE FOR A HEADACHE AND THAT WAS NOT WHAT SHE NEEDED IT FOR. I ASKED HER WHY SHE WOULD NEED A DIFFERENT MEDICATION AND SHE STATED THAT SHE WAS IN PAIN. I REMINDED HER THAT SHE HAD THE FORENSIC ECONOMIST PUMP. SHE PRESSED THE BUTTON AND IT SAID MAX LIMIT REACHED. FAMILY AND PT BELIEVE THAT SHE IS NOT GETTING ENOUGH PAIN MEDICATION AND KEEP REQUESTING THAT SHE RECEIVE OXYCONTIN ON TOP OF THE MORPHINE. I HAVE EXPLAINED TO THE PT AND FAMILY THAT THIS IS NOT SOMETHING THAT WE CAN PROVIDE AND THAT IT WOULD BE A DANGER TO HER TO TAKE BOTH. I HAVE OFFERED HER THE FLEXARIL AVAILABLE ON HER CHART AND PT DECLINES. PT SAYS THAT THE FLEXARIL WILL IN NO WAY HELP HER PAIN.
--- NOTE | 2019-01-12 17:26 | NUR ---
PT FAMILY GOT PT OUT OF BED TO BATHROOM. I HAVE MADE MULTIPLE ATTEMPTS TO INSTRUCT PT TO NOT GET UP WITHOUT ASSISTANCE. SHE WILL NOT PRESS THE CALL LIGHT AND SHE WILL NOT FOLLOW INSTRUCTIONS.
[2019-01-12 18:25] VITALS: BP 175/64
[2019-01-12 18:32] LABS: ERYTHROCYTE SEDIMENTATION RATE 3 mm/hr (0-30)
--- NOTE | 2019-01-12 19:45 | NUR ---
DR GRANADO STATED TO GIVE PT 1MG DILAUDID IV AND 30MG OXYCODONE IR TOGETHER, GAVE PAIN MEDICATION ORDERED
[2019-01-12 20:00] VITALS: BP 161/69
--- NOTE | 2019-01-12 21:05 | NUR ---
GRAND DAUGHTER CALLED STATED SHE THINKS PT IS POISONING HER AND WANTS THE PHYSICIAN TO TAKE A CLOSER LOOK
--- NOTE | 2019-01-12 21:21 | NUR ---
PT REFUSED TO COMPLY WITH THE ADMINISTRATION OF MDI INHALATION [place]
--- NOTE | 2019-01-13 02:23 | NUR ---
I AGREE WITH NAVAL GUNFIRE LIAISON OFFICER ASSESSMENT.
[2019-01-13 04:00] VITALS: BP 173/81
[2019-01-13 07:11] LABS: BASOPHILS 0.2 % (0-2); EOSINOPHILS 1.9 % (0-7); HEMATOCRIT 26.6 % (36.0-48.0); HEMOGLOBIN 8.7 g/dL (12-16); IMMATURE GRANULOCYTES 0.3 % (0-5); LYMPHOCYTES 13.3 % (15-50); MCH 28.1 pg (26.0-34.0); MCHC 32.7 g/dL (31.0-37.0); MCV 85.8 fL (80.0-100.0); MEAN PLATELET VOLUME 8.8 fL (7.4-10.4); NEUTROPHILS 76.3 % (40-80); PLATELET COUNT 241 10x3/uL (130-400); RDW 18.5 % (11.5-14.5)
[2019-01-13 07:36] LABS: ALBUMIN 2.2 g/dL (3.4-5.0); ANION GAP 15.8 mmol/L (8-16); BILIRUBIN - TOTAL 0.23 mg/dL (0.2-1.3); CALCIUM 8.2 mg/dL (8.5-10.1); CARBON DIOXIDE 21.7 mmol/L (21.0-32.0); CREATININE - SERUM 0.9 mg/dL (0.6-1.3); MAGNESIUM - SERUM 1.8 mg/dL (1.8-2.4); POTASSIUM - SERUM 3.5 mmol/L (3.5-5.1); PROTEIN - SERUM 5.4 g/dL (6.4-8.2); VANCOMYCIN - TROUGH 24.2 ug/mL (10.0-20.0)
[2019-01-13 08:54] VITALS: BP 173/89
--- NOTE | 2019-01-13 10:23 | NUR ---
REHAB PRESCREENING Rehab referral received and chart reviewed. This patient is currently receiving bed mobility only with PT. She will need to be willing and able to participate in the required 3 hours of therapy in order to meet admission criteria. Rehab will continue to follow for improvement. Thank you for this referral! Tsering Lambert, CLOTH MEASURER MACHINE Rehab PD
--- NOTE | 2019-01-13 12:16 | NUR ---
DAUGHTER WONDERS WHY HER MOM SEEMS TO BE MORE CONFUSED NOW OPPOSED TO THIS MORNING. PATIENT TALKING ABOUT MOVING TO [place]. I TOLD HER THE RESULTS OF HER BLOOD TEST AND THAT I DIDN'T GIVE HER ANY HYROMORPHONE. EXPLAINED ABOUT HOSPITAL PSYCHOSIS AND THAT HER SODIUM LEVELS ARE MUCH BETTER THAN YESTERDAY SO I AM NOT SURE. DAUGHTER SAID SHE ALSO HAS STAGE 3 RENAL DISEASE. NO FURTHER NEEDS AT THIS TIME.
[2019-01-13 12:47] VITALS: BP 150/68
[2019-01-13 17:33] VITALS: BP 189/88
--- NOTE | 2019-01-13 20:20 | NUR ---
INTRODUCED SELF TO PATIENT, PATIENT DAUGHTER AT BEDSIDE WANTING TO GO OUTSIDE. ADVISED THAT THEY WOULD NEED TO TAKE THE IV PUMP WITH THEM BECAUSE SHE WAS ON VANCOMYCIN, PATIENT STATED 'I WON'T BE TOMORROW' AND THAT SHE WANTED TO LEAVE.
--- NOTE | 2019-01-13 22:40 | NUR ---
PATIENT REFUSED TOBIAS, STATES HASN'T TAKEN THAT IN YEARS. HAD TWO DAUGHTERS AND AT BEDSIDE. RESP EVEN AND UNLABORED, BED IN LOWEST POSITION.
[2019-01-14] VITALS: BP 191/85
--- NOTE | 2019-01-14 00:15 | NUR ---
PATIENT WENT OUTSIDE WITH FOR 30 MINUTES, WANTED TO KNOW ABOUT INFECTIOUS DISEASE REPORT. LEFT TO GO HOME. PATIENT RECEIVED DILAUIDID, RESP EVEN AND UNLABORED, BED IN LOWEST POSITION, CALL LIGHT IN REACH.
--- NOTE | 2019-01-14 02:40 | NUR ---
PATIENT REQUESTED SOMETHING FOR MIGRAINE, GIVEN FIROCIET.
[2019-01-14 04:00] VITALS: BP 188/89
[2019-01-14 07:12] LABS: BASOPHILS 0.3 % (0-2); EOSINOPHILS 6.3 % (0-7); HEMATOCRIT 29.5 % (36.0-48.0); HEMOGLOBIN 9.7 g/dL (12-16); IMMATURE GRANULOCYTES 0.3 % (0-5); LYMPHOCYTES 16.1 % (15-50); MCH 28.4 pg (26.0-34.0); MCHC 32.9 g/dL (31.0-37.0); MCV 86.3 fL (80.0-100.0); MEAN PLATELET VOLUME 8.7 fL (7.4-10.4); MONOCYTES 7.9 % (2-11); NEUTROPHILS 69.1 % (40-80); PLATELET COUNT 276 10x3/uL (130-400); RBC 3.42 10x6/uL (4.00-5.40); RDW 18.2 % (11.5-14.5); WBC 7.9 10x3/uL (4.8-10.8)
[2019-01-14 07:48] LABS: ALBUMIN 2.5 g/dL (3.4-5.0); ANION GAP 20.1 mmol/L (8-16); BILIRUBIN - TOTAL 0.27 mg/dL (0.2-1.3); CARBON DIOXIDE 20.6 mmol/L (21.0-32.0); CREATININE - SERUM 0.8 mg/dL (0.6-1.3); MAGNESIUM - SERUM 1.8 mg/dL (1.8-2.4); POTASSIUM - SERUM 3.7 mmol/L (3.5-5.1)
[2019-01-14 07:50] LABS: PROTEIN - SERUM 6.9 g/dL (6.4-8.2)
[2019-01-14 08:45] VITALS: BP 195/94
--- NOTE | 2019-01-14 12:19 | NUR ---
PATIENT WENT OUTSIDE FOR FRESH AIR WITH DAUGHTER FROM [place]. CO A HEADACHE. TREATED IT. WILL CONTINUE TO MONITOR
[2019-01-14 13:00] VITALS: BP 114/73
--- NOTE | 2019-01-14 13:04 | NUR ---
PATIENT WAS OUT WALKING. STATES THE IV POLE FELL OVER AND HIT HER LEG. SHE NOW HAS A SKIN TEAR ON HER RIGHT LOWER EXTREMITY. COVERED WITH A NONADHERENT DRESSING. MINIMAL BLEEDING.
--- NOTE | 2019-01-14 15:02 | NUR ---
NUTRITION F/U CHART REVIEWED, PT VISIT. PT REPORTS IMPROVING PO INTAKE. ~ 50% INTAKE LUNCH TODAY. WILL CONTINUE TO MONITOR PT PROGRESS. RD FOLLOWING
[2019-01-14 16:45] VITALS: BP 168/89
--- NOTE | 2019-01-14 19:20 | NUR ---
REINTRODUCED SELF TO PATIENT, PATIENT HAD BOTH DAUGHTERS AT BEDSIDE. VANNESA NOTIFIED WHEN PATIENT RETURNED TO ROOM, VANNESA STATED PATIENT WOULD D/C TOMORROW, D/C'D ALL ANTIBIOTICS.
--- NOTE | 2019-01-14 20:16 | NUR ---
ANSWERED PATIENT CALL LIGHT, PATIENT STATED IV WAS LEAKING, SALINE LOCKED D/T ABT BEING DISCONTINUED. CALLED CARTON REPAIRER TO SEE IF I COULD CHANGE IV DILAUDID TO PO AND SALINE LOCK.
--- NOTE | 2019-01-14 20:17 | NUR ---
PATIENT DAUGHTER CAME TO FIND ME IN ANOTHER PATIENTS ROOM TO ASK IF I COULD CALL THE DOCTOR BACK TO THE ROOM, LOOK AT HER MOMS SWELLING IN HER FEET. CALLED JAEL CANAS CLOTHING PATTERN PREPARER, JAEL GAVE ORDER TO Stan/Geovani ARCINIEGA ENTIRELY AND THAT VANNESA'S NURSE PRACTITIONER WOULD EVALUATE FEET SWELLING TOMORROW. BED IN LOWEST POSITION, CALL LIGHT IN REACH.
[2019-01-14 22:02] VITALS: BP 209/98
[2019-01-15 01:05] VITALS: BP 184/785
--- NOTE | 2019-01-15 03:16 | NUR ---
PATIENT RESTING QUIETLY, DAUGHTERS LEFT BEDSIDE. RESP EVEN AND UNLABORED. BED IN LOWEST POSITION, CALL LIGHT IN REACH.
[2019-01-15 05:10] VITALS: BP 175/68
[2019-01-15 06:03] LABS: BASOPHILS 0.3 % (0-2); EOSINOPHILS 4.8 % (0-7); IMMATURE GRANULOCYTES 0.3 % (0-5); LYMPHOCYTES 21.3 % (15-50); MCH 28.6 pg (26.0-34.0); MCHC 33.3 g/dL (31.0-37.0); MCV 85.7 fL (80.0-100.0); MEAN PLATELET VOLUME 8.7 fL (7.4-10.4); MONOCYTES 9.4 % (2-11); NEUTROPHILS 63.9 % (40-80); PLATELET COUNT 293 10x3/uL (130-400); RBC 3.15 10x6/uL (4.00-5.40); RDW 18.1 % (11.5-14.5); WBC 7.6 10x3/uL (4.8-10.8)
[2019-01-15 06:40] LABS: ALBUMIN 2.3 g/dL (3.4-5.0); ALKALINE PHOSPHATASE 86 U/L (46-116); ALT (SGPT) 27 U/L (10-68); BILIRUBIN - TOTAL 0.19 mg/dL (0.2-1.3); CALC OSMOLALITY 278 mosm/kg (275-300); CARBON DIOXIDE 26.6 mmol/L (21.0-32.0); CHLORIDE - SERUM 105 mmol/L (98-107); CREATININE - SERUM 0.7 mg/dL (0.6-1.3); GLUCOSE 89 mg/dL (74-106); MAGNESIUM - SERUM 1.9 mg/dL (1.8-2.4); POTASSIUM - SERUM 3.2 mmol/L (3.5-5.1); PROTEIN - SERUM 6.2 g/dL (6.4-8.2); SODIUM 141 mmol/L (136-145); UREA NITROGEN 10 mg/dL (7-18); eGFR NON AFRICAN AMERICAN 87 mL/min (90-120)
--- NOTE | 2019-01-15 07:54 | NUR ---
PATIENT SITTING UP IN BED WITH NO COMPLAINTS OR SIGNS OF DISTRESS. IV INTACT. CALL LIGHT WITHIN REACH.
[2019-01-15 08:38] VITALS: BP 159/88
[2019-01-15] MEDS ORDERED: NORVASC10 MG PO (09:17)
[2019-01-15] MEDS ORDERED: PREDNISONE20 MG PO (09:19)
--- NOTE | 2019-01-15 10:39 | MORECARE ---
CASE MANAGEMENT DISCHARGE SUMMARY PATIENT: JO ANN IZQUIERDO UNIT: [id number] ADM DATE: 01/10/19 AGE: 73 : 46 SEX: F ROOM/BED: D.[facility] AUTHOR: JULIA HILL PHYSICIAN: REFERRING PHYSICIAN: MERON COE MD DATE OF SERVICE: 01/15/19 Discharge Plan Patient Name: JO ANN IZQUIERDO Facility: [facility]:[place] : 1945 Planned Disposition: Home Anticipated Discharge Date: 01/15/19 Discharge Date: Expected LOS: 5 Initial Reviewer: [email or web address] Initial Review Date: 01/10/2019 Generated: 01/15/19 11:39 am DCPIA - Discharge Planning Initial Assessment Updated by [email or web address]: Jennifer Alonzo on 01/15/19 10:37 am * Is the patient Alert and Oriented? Yes * How many steps to enter\exit or inside your home? 5/0 * PCP Dr. Alejandro * Pharmacy [facility] * Preadmission Environment Home with Family * ADLs Independent * Equipment Walker * List name and contact numbers for known caregivers / representatives who currently or will assist patient after discharge: Gallo Johnathan - banner - [phone] Jeanna - DTR - [phone] [facility] - [phone] * Verbal permission to speak to the caregivers and representatives has been obtained from the patient. Yes * Community resources currently utilized None * Additional services required to return to the preadmission environment? No * Can the patient safely return to the preadmission environment? Yes * Has this patient been hospitalized within the prior 30 days at any hospital? No Patient Name: JO ANN IZQUIERDO Page [id number] at 1039 All edits/amendments must be made on the electronic document DICTATION DATE: 01/15/19 1039 SAMPLE PREPARATION SUPERVISOR: TONNY 01/15/19 1039 RPT#: [id number] DC DATE: STATUS: ADM IN [place] [address] [place] [address] END OF REPORT
--- NOTE | 2019-01-15 10:48 | MORECARE ---
CASE MANAGEMENT DISCHARGE SUMMARY PATIENT: JO ANN IZQUIERDO UNIT: [id number] ADM DATE: 01/10/19 AGE: 73 : 46 SEX: F ROOM/BED: D.2233 AUTHOR: JULIA HILL PHYSICIAN: REFERRING PHYSICIAN: MERON COE MD DATE OF SERVICE: 01/15/19 Discharge Plan Patient Name: JO ANN IZQUIERDO Facility: [facility]:[place] : 1945 Planned Disposition: Home Anticipated Discharge Date: 01/15/19 Discharge Date: Expected LOS: 5 Initial Reviewer: [email or web address] Initial Review Date: 01/10/2019 Generated: 01/15/19 11:48 am Comments DCP- Discharge Planning Updated by [email or web address]: Jennifer Alonzo on 01/15/19 9:[address] Patient Name: JO ANN IZQUIERDO Admission Status: ER Accout number: [id number] Admission Date: 01-10-2019 : 1945 Admission Diagnosis:RADICULOPATHY, SITE UNSPECIFIED Attending: MERON COE Current LOS: 5 Anticipated DC Date: 01-15-2019 Planned Disposition: Home Primary Insurance: MEDICARE A & B Discharge Planning Comments: CM met with patient to complete initial dc planning assessment. CM educated patient on the CM role and verbal consent given by patient to complete assessment. Patient lives at home with her and daughter. At discharge patient plans to return and feels this is a safe discharge. CM discussed availability of home health, rehab services, and medical equipment. Patient denied known discharge needs at this time. Her daughter (Jeanna) is in the room and is taking her home. CM will continue to follow and will assist as needed with dc plans/needs. Health Promotion Manager: Jennifer Alonzo DCPIA - Discharge Planning Initial Assessment Updated by [email or web address]: Jennifer Alonzo on 01/15/19 10:37 am * Is the patient Alert and Oriented? Yes * How many steps to enter\exit or inside your home? 5/0 * PCP Dr. Alejandro * Pharmacy [facility] on [facility] * Preadmission Environment Home with Family * ADLs Independent * Equipment Walker * List name and contact numbers for known caregivers / representatives who currently or will assist patient after discharge: Gallo Johnathan - [facility] - [phone] Jeanna DTR - [phone] Eliane Imtiaz - [facility] - [phone] * Verbal permission to speak to the caregivers and representatives has been obtained from the patient. Yes * Community resources currently utilized None * Additional services required to return to the preadmission environment? No * Can the patient safely return to the preadmission environment? Yes * Has this patient been hospitalized within the prior 30 days at any hospital? No Coverage Notice Reviewer: [email or web address] Cory Alonzo Notice Issued Date-Time: 01/15/2019 10:40 Notice Type: IM Discharge Notice Notice Delivered To: Patient Relationship to Patient: Self Speech Therapy Teacher Name: Delivery Method: HAND - Hand Delivered Liza Days: Prior Verbal Notification: Recipient Understood Notice: Yes Recipient Signature: Yes Med Rec Note Co-signed by Attending: Coverage Notice Comment: IMM explained, signed, given, copy placed in MR Last DP export: 01/15/19 9:39 a Patient Name: JO ANN IZQUIERDO Page [phone] at 1048 All edits/amendments must be made on the electronic document DICTATION DATE: 01/15/19 1047 INSTALLATION & MAINTENANCE EXECUTIVE: TONNY 01/15/19 1047 RPT#: [id number] DC DATE: STATUS: ADM IN [facility] [address] [place] [address] END OF REPORT
--- NOTE | 2019-01-15 12:15 | NUR ---
DISCUSSED DISCHARGE, MEDICATION AND FOLLOW-UP INSTRUCTIONS WITH PATIENT AND DAUGHTER. VERBALIZED UNDERSTANDING. IV REMOVED, TIP INTACT. DRESSING TO RIGHT LYMAN CHANGED. ALL BELONGINGS SENT WITH PATIENT. DISCHARGED HOME BY WHEELCHAIR BY VOLUNTEER ACCOMPANIED BY DAUGHTER.
--- NOTE | 2019-01-15 17:04 | MORECARE ---
CASE MANAGEMENT DISCHARGE SUMMARY PATIENT: JO ANN IZQUIERDO UNIT: [id number] ADM DATE: 01/10/19 AGE: 73 : 47 SEX: F ROOM/BED: D.2233 AUTHOR: LIZDOC PHYSICIAN: REFERRING PHYSICIAN: MERON COE MD DATE OF SERVICE: 01/15/19 Discharge Plan Patient Name: JO ANN IZQUIERDO Facility[facility]:[place] : 1945 Planned Disposition: Home Anticipated Discharge Date: 01/15/19 Discharge Date: 01/15/2019 Expected LOS: 5 Initial Reviewer: [email or web address] Initial Review Date: 01/10/2019 Generated: 01/15/19 6:04 pm Comments DCP- Discharge Planning Updated by [email or web address]: Jennifer Alonzo on 01/15/19 9:[address] Patient Name: JO ANN IZQUIERDO Admission Status: ER Accout number: [id number] Admission Date: 01-10-2019 : 1945 Admission Diagnosis:RADICULOPATHY, SITE UNSPECIFIED Attending: MERON COE Current LOS: 5 Anticipated DC Date: 01-15-2019 Planned Disposition: Home Primary Insurance: MEDICARE A & B Discharge Planning Comments: CM met with patient to complete initial dc planning assessment. CM educated patient on the CM role and verbal consent given by patient to complete assessment. Patient lives at home with her and daughter. At discharge patient plans to return and feels this is a safe discharge. CM discussed availability of home health, rehab services, and medical equipment. Patient denied known discharge needs at this time. Her daughter (Jeanna) is in the room and is taking her home. CM will continue to follow and will assist as needed with dc plans/needs. Manager Secondary: Jennifer Alonzo DCPIA - Discharge Planning Initial Assessment Updated by [email or web address]: Jennifer Alonzo on 01/15/19 10:37 am * Is the patient Alert and Oriented? Yes * How many steps to enter\exit or inside your home? 5/0 * PCP Dr. Alejandro * Pharmacy [facility] [address] * Preadmission Environment Home with Family * ADLs Independent * Equipment Walker * List name and contact numbers for known caregivers / representatives who currently or will assist patient after discharge: Gallo Izquierdo - [facility] - [phone] Jeanna DTR - [phone] Eliane Kitchen - DT - [phone] * Verbal permission to speak to the caregivers and representatives has been obtained from the patient. Yes * Community resources currently utilized None * Additional services required to return to the preadmission environment? No * Can the patient safely return to the preadmission environment? Yes * Has this patient been hospitalized within the prior 30 days at any hospital? No Coverage Notice Reviewer: [email or web address] Cory Alonzo Notice Issued Date-Time: 01/15/2019 10:40 Notice Type: IM Discharge Notice Notice Delivered To: Patient Relationship to Patient: Self Flight Radio Operator Name: Delivery Method: HAND - Hand Delivered Liza Days: Prior Verbal Notification: Recipient Understood Notice: Yes Recipient Signature: Yes Med Rec Note Co-signed by Attending: Coverage Notice Comment: IMM explained, signed, given, copy placed in MR Last DP export: 01/15/19 9:48 a Patient Name: JO ANN IZQUIERDO Page [phone] at 1704 All edits/amendments must be made on the electronic document DICTATION DATE: 01/15/191703 SOFT WATER MECHANIC: TONNY 01/15/191703 RPT#: [id number] DC DATE:01/15/19 STATUS: DIS IN [facility] [address] [place] [address] END OF REPORT
== END 2019-01-15 12:30 | disposition home or self-care (01) | DRG 545 ==
LOC: D.ER 14:12 → D.EDHOLD 17:40 → D.MS 17:40
PROVIDERS: Family Medicine; Family Medicine Adult Medicine; Internal Medicine; Internal Medicine Nephrology; ADMIT Family Medicine
DX: M06.9 Rheumatoid arthritis, unspecified (principal); G93.41 Metabolic encephalopathy; J44.1 Chronic obstructive pulmonary disease with (acute) exacerbation; E87.1 Hypo-osmolality and hyponatremia; D72.829 Elevated white blood cell count, unspecified; M25.552 Pain in left hip; M54.42 Lumbago with sciatica, left side; E86.0 Dehydration; G40.909 Epilepsy, unspecified, not intractable, without status epilepticus; I10 Essential (primary) hypertension

== ENCOUNTER → 2019-08-18 08:03 | Outpatient (CLI) | payer MEDICARE ==
[2019-01-11 13:32] VITALS: BMI 20.8
[~2019-08-18 08:03] MED LIST changes: +CATAPRES TTS-20.2 MG TD; +VIBRAMYCIN 100100 MG PO
== END | disposition home or self-care (01) ==
LOC: D.US 08:00
PROVIDERS: ATTEND Nurse Practitioner Family
DX: I10 Essential (primary) hypertension (principal); Z68.21 Body mass index [BMI] 21.0-21.9, adult; Z72.0 Tobacco use

== ENCOUNTER 2019-08-21 16:16 | Emergency (ER) | payer MEDICARE ==
[~2019-08-21] VITALS: Ht 165.1 cm; Wt 56.8 kg
[~2019-08-21 16:16] MED LIST changes: -CATAPRES TTS-20.2 MG TD; -VIBRAMYCIN 100100 MG PO
[2019-08-21 16:31] VITALS: Ht 165.1 cm; Wt 56.8 kg
[2019-08-21 17:37] LABS: BASOPHILS 0.2 % (0-2); EOSINOPHILS 4.4 % (0-7); HEMOGLOBIN 11.9 g/dL (12-16); IMMATURE GRANULOCYTES 0.3 % (0-5); LYMPHOCYTES 19.4 % (15-50); MCH 29.2 pg (26.0-34.0); MCHC 33.1 g/dL (31.0-37.0); MCV 88.2 fL (80.0-100.0); MEAN PLATELET VOLUME 9.3 fL (7.4-10.4); MONOCYTES 7.3 % (2-11); NEUTROPHILS 68.4 % (40-80); PLATELET COUNT 271 10x3/uL (130-400); RBC 4.08 10x6/uL (4.00-5.40); RDW 14.6 % (11.5-14.5); WBC 9.1 10x3/uL (4.8-10.8)
[2019-08-21 17:51] LABS: APTT 36.8 SECONDS (22.8-39.4); INR 1.07 (0.85-1.17); PROTIME 13.4 SECONDS (11.6-15.0)
[2019-08-21 17:58] LABS: ALKALINE PHOSPHATASE 151 U/L (46-116); ALT (SGPT) 23 U/L (10-68); BILIRUBIN - TOTAL 0.26 mg/dL (0.2-1.3); CALC OSMOLALITY 282 mosm/kg (275-300); CALCIUM 8.7 mg/dL (8.5-10.1); CARBON DIOXIDE 27.4 mmol/L (21.0-32.0); CHLORIDE - SERUM 105 mmol/L (98-107); CREATININE - SERUM 1.2 mg/dL (0.6-1.3); GLUCOSE 110 mg/dL (74-106); POTASSIUM - SERUM 3.3 mmol/L (3.5-5.1); PROTEIN - SERUM 7.2 g/dL (6.4-8.2); SODIUM 141 mmol/L (136-145); UREA NITROGEN 14 mg/dL (7-18); eGFR NON AFRICAN AMERICAN 47 mL/min (90-120)
[2019-08-21 18:01] LABS: CKMB 1.3 U/L (0.0-3.6); CREATINE KINASE 46 UL (21-215); PRO BNP 1032 pg/mL (0-125)
[2019-08-21 18:04] LABS: TROPONIN-I < 0.017 ng/mL (0.000-0.060)
[2019-08-21] MEDS ORDERED: PREDNISONE20 MG PO (20:15)
[2019-08-21] MEDS ORDERED: COMBIVENT RESPIM4 GM INH (20:15)
[2019-08-21] MEDS ORDERED: VIBRAMYCIN 100100 MG PO (20:15)
[2019-08-21] MEDS ORDERED: CATAPRES TTS-20.2 MG TD (20:26)
[2019-08-21 21:16] VITALS: BP 193/79
== END 2019-08-21 21:16 | disposition home or self-care (01) ==
LOC: D.ER 16:16
PROVIDERS: Emergency Medicine
DX: J44.9 Chronic obstructive pulmonary disease, unspecified (principal); I10 Essential (primary) hypertension

== ENCOUNTER → 2019-08-22 07:56 | Outpatient (CLI) | payer MEDICARE ==
[2019-08-21 16:31] VITALS: BMI 20.8
--- NOTE | 2019-08-21 19:36 | NUR ---
DR. BHATT NOTIFIED OF ASSESSMENT RESULTS. PT IS A LOW RISK AT THIS TIME PER DR. BHATT. DR. BHATT STATED TO GIVE RESOURCES AT TIME OF DISCHARGE. REVIEWED RESOURCES WITH PATIENT AND PATIENT VERBALIZIED UNDERSTANDING.
[~2019-08-22 07:56] MED LIST changes: +CATAPRES TTS-20.2 MG TD; +VIBRAMYCIN 100100 MG PO
== END | disposition home or self-care (01) ==
LOC: D.CT 07:56
PROVIDERS: ATTEND Nurse Practitioner Family
DX: R93.89 Abnormal findings on diagnostic imaging of other specified body structures (principal); I70.1 Atherosclerosis of renal artery

== ENCOUNTER → 2019-09-19 12:14 | Outpatient (CLI) | payer MEDICARE ==
[2019-08-21 16:31] VITALS: BMI 20.8
== END ==
LOC: D.CT 12:14
PROVIDERS: ATTEND Nurse Practitioner Family
DX: I70.1 Atherosclerosis of renal artery (principal); R93.89 Abnormal findings on diagnostic imaging of other specified body structures; Z72.0 Tobacco use

== ENCOUNTER → 2019-10-29 12:02 | Outpatient (CLI) | payer MEDICARE ==
[2019-08-21 16:31] VITALS: BMI 20.8
== END | disposition home or self-care (01) ==
LOC: D.RAD 10-23 14:15 → D.RT 10-23 14:30 → D.RAD 10:30
PROVIDERS: ATTEND Internal Medicine Pulmonary Disease
DX: J44.9 Chronic obstructive pulmonary disease, unspecified (principal); I70.1 Atherosclerosis of renal artery; I12.9 Hypertensive chronic kidney disease with stage 1 through stage 4 chronic kidney disease, or unspecified chronic kidney disease; N18.9 Chronic kidney disease, unspecified

== ENCOUNTER 2020-06-21 21:17 | Inpatient (IN) | payer MEDICARE ==
[~2020-06-21] VITALS: Ht 165.1 cm; Wt 54.6 kg
[2020-06-21 22:56] LABS: BASOPHILS 0.1 % (0-2); EOSINOPHILS 0.8 % (0-7); HEMATOCRIT 42.6 % (36.0-48.0); HEMOGLOBIN 14.1 g/dL (12-16); IMMATURE GRANULOCYTES 0.3 % (0-5); LYMPHOCYTES 9.5 % (15-50); MCH 28.4 pg (26.0-34.0); MCHC 33.1 g/dL (31.0-37.0); MCV 85.9 fL (80.0-100.0); MEAN PLATELET VOLUME 9.5 fL (7.4-10.4); NEUTROPHILS 85.3 % (40-80); PLATELET COUNT 312 10x3/uL (130-400); RBC 4.96 10x6/uL (4.00-5.40); RDW 14.5 % (11.5-14.5); WBC 14.3 10x3/uL (4.8-10.8)
[2020-06-21 23:00] VITALS: BP 192/94
[2020-06-21 23:01] LABS: APTT 32.3 SECONDS (22.8-39.4); INR 0.98 (0.85-1.17); PROTIME 12.9 SECONDS (11.6-15.0)
[2020-06-21 23:03] LABS: CALC OSMOLALITY 273 mosm/kg (275-300); CALCIUM 9.2 mg/dL (8.5-10.1); CARBON DIOXIDE 24.4 mmol/L (21.0-32.0); CHLORIDE - SERUM 102 mmol/L (98-107); CREATININE - SERUM 1.3 mg/dL (0.6-1.3); GLUCOSE 128 mg/dL (74-106); POTASSIUM - SERUM 3.3 mmol/L (3.5-5.1); SODIUM 136 mmol/L (136-145); UREA NITROGEN 12 mg/dL (7-18); eGFR NON AFRICAN AMERICAN 42 mL/min (90-120)
[2020-06-21 23:18] LABS: ALBUMIN 3.7 g/dL (3.4-5.0); ALKALINE PHOSPHATASE 202 U/L (30-120); ALT (SGPT) 18 U/L (10-68); C-REACTIVE PROTEIN 5.3 mg/dL (0.0-0.9); LIPASE 81 U/L (73-393); PRO BNP 2847 pg/mL (0-125); PROTEIN - SERUM 8.2 g/dL (6.4-8.2); TROPONIN-I < 0.017 ng/mL (0.000-0.060)
--- NOTE | 2020-06-21 23:29 | NUR ---
URINE SENT TO LAB
[2020-06-21 23:30] VITALS: BP 171/96
[2020-06-21 23:47] LABS: UDS - AMPHET NEGATIVE QUAL (NEGATIVE); UDS - BARB POSITIVE QUAL (NEGATIVE); UDS - BENZO NEGATIVE QUAL (NEGATIVE); UDS - COCAINE NEGATIVE QUAL (NEGATIVE); UDS - OPIATE NEGATIVE QUAL (NEGATIVE); UDS - PCP NEGATIVE QUAL (NEGATIVE); UDS - THC POSITIVE QUAL (NEGATIVE)
[2020-06-21 23:55] LABS: BILIRUBIN NEGATIVE (NEGATIVE); KETONE NEGATIVE (NEGATIVE); NITRITE NEGATIVE (NEGATIVE); UROBILINOGEN NORMAL (NORMAL)
[2020-06-21 23:56] LABS: BACTERIA MODERATE /hpf (NEGATIVE); EPITHELIAL CELLS 0-5 /hpf (0-5); RED CELLS - URINE 0-5 /hpf (0-5); WHITE CELLS - URINE 0-5 /hpf (NEGATIVE)
[2020-06-22] VITALS (19 sets, daily range): BP systolic 106–233; BP diastolic 70–106; Ht 165.1 cm; Wt 54.6 kg
[2020-06-22] MEDS ORDERED: PERCOCET 10-321 EAC1 PO (03:25)
[2020-06-22] MEDS ORDERED: ELAVIL10 MG PO (03:26)
[2020-06-22] MEDS ORDERED: BAYER CHEWABLE81 MG PO (03:26)
[2020-06-22] MEDS ORDERED: SINGULAIR10 MG PO (03:27)
[2020-06-22] MEDS ORDERED: ZOFRAN4 MG PO (03:29)
[2020-06-22] MEDS ORDERED: PHENERGAN25 M1 PO (03:30)
[2020-06-22] MEDS ORDERED: ALDACTONE25 MG PO (03:31)
[2020-06-22] MEDS ORDERED: HYDROXYZINE HCL50 MG PO (03:32)
[2020-06-22] MEDS ORDERED: GABAPENTIN100 MG PO (03:33)
[2020-06-22] MEDS ORDERED: FERROUS SULFAT325 MG PO (03:34)
[2020-06-22] MEDS ORDERED: ACETAMINOPHEN500 M1 PO (03:34)
--- NOTE | 2020-06-22 04:19 | NUR ---
PT ARRIVED TO CVICU ACCOMPANIED BY ER STAFF. PT SPOUSE WITH PT AT THIS TIME. ASSESSMENT COMPLETED, SEE FLOWSHEET. PIV IN LT FOREARM AND RT FOREARM TO SL. WILL CONTINUE TO MONITOR.
--- NOTE | 2020-06-22 05:50 | NUR ---
DR THAYER IN ROOM, NEW ORDERS RECEIVED.
--- NOTE | 2020-06-22 06:22 | NUR ---
PT OFF TO CT.
--- NOTE | 2020-06-22 08:12 | NUR ---
PT C/O PAIN. DILAUDID GIVEN. BP 171/81. LOPRESSOR GIVEN. BP NOW. 154/80. PT REPORTS ADEQUATE R/O PAIN.
--- NOTE | 2020-06-22 10:45 | NUR ---
REPORT CALLED TO LATTER-DAY IN LR. CM PAGED RE: MED FLIGHT.
--- NOTE | 2020-06-22 11:55 | NUR ---
PT READY TO GO. SURVIVAL FLIGHT HERE. PT C/O UNCONTROLLED PAIN AFTER DILAUDID GIVEN. PT ATTEMPTING TO GET OOB. SURVIVAL FLIGHT ASSISTING PT BACK UP IN BED. PT BECAME BRADYCARDIC AND UNRESPONSIVE. CODE CALLED AND BLS 100%BVM, ACLS INDICATED. AT BS DURING CODE. CODE CALLED AFTER 30MIN CPR.
--- NOTE | 2020-06-22 13:08 | NUR ---
MOTION GRAPHICS ARTIST NOTIFIED AND PT IS RELEASED. PTS UNDECIDED ON HOME.
--- NOTE | 2020-06-22 14:18 | NUR ---
LINA NOTIFIED. PTS GIVEN A LIST OF HOMES TO CHOOSE FROM. AWAITING DECISION ON HOME.
--- NOTE | 2020-06-22 16:13 | NUR ---
has not decided on home. wants her to not go to a home at all. wants her to be donated to science. reported to DEX THAT THE HOME WILL ASST WITH THAT PROCESS. OTHER FAM MARIA LUISA HERE.M NOTIFIED. LIST OF HOMES GIVEN TO DEX.
--- NOTE | 2020-06-22 16:56 | NUR ---
PTS REPORTS THAT HE CALLED [facility] AND IS NOW ASKING TO SEE A CM. JOE WITH CM IN ROOM. CM STATES THAT SHE SPOKE TO [employer] AND SHE IS NOT EXCEPTED DUE TO MULT SURGERIES. DEX/ IS ASKING FOR THE PHONE NUMBER TO [employer]. CM GAVE PHONE NUMBER.
--- NOTE | 2020-06-22 17:17 | NUR ---
PTS REPORTS THAT HE SPOKE TO [facility] AND HE WANTS TO SPEAK TO CM AGAIN. CM IN ROOM WITH HIM. DEX STATES THAT HE HAS DECIDED ON [facility]. CORONOR NOTIFIED OF HOME DECIDED UPON.
--- NOTE | 2020-06-22 17:20 | NUR ---
AWAITING CALL BACK FROM CORONOR.
--- NOTE | 2020-06-22 17:42 | NUR ---
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 BILLY NOTIFIED WELL. AWAITING CALL BACK.
--- NOTE | 2020-06-22 17:57 | NUR ---
LINA NOTIFIED AND HOME NOTIFIED.
--- NOTE | 2020-06-22 18:46 | NUR ---
[facility] HERE AND TOOK PT.
--- NOTE | 2020-06-22 22:37 | MORECARE ---
CASE MANAGEMENT DISCHARGE SUMMARY PATIENT: JO ANN IZQUIERDO UNIT: [id number] ADM DATE: 06/22/20 AGE: 75 : 47 SEX: F ROOM/BED: D[facility] AUTHOR: JULIA HILL PHYSICIAN: REFERRING PHYSICIAN: AMY SOARES MD DATE OF SERVICE: 06/22/20 Discharge Plan Patient Name: JO ANN IZQUIERDO Facility: [facility]:[place] : 1945 Planned Disposition: Anticipated Discharge Date: Discharge Date: 06/22/2020 Expected LOS: Initial Reviewer: [email or web address] Initial Review Date: 06/22/2020 Generated: 06/22/20 11:36 pm Comments DCP- Discharge Planning Updated by [email or web address]: Yahaira Dyer on 06/22/20 9:[address] CM spoke with spouse regarding home placement. Patient's spouse was wanting whole body donation. CM contacted [facility] and they declined patient. Spouse wanted to call and speak to them himself. CM gave patient's spouse phone number [phone] to [employer] and then later he requested [facility] [employer] phone number [phone]. He finally gave CM and nurse Satsuma as the home to pickle cutter body. Patient Name: JO ANN IZQUIERDO Page [phone] at 2237 All edits/amendments must be made on the electronic document DICTATION DATE: 06/22/202236 CHIEF OPERATOR LOCK TENDER: TONNY 06/22/202236 RPT#: [id number] DC DATE:06/22/20 STATUS: DIS IN [facility] [address] [place] [address] END OF REPORT
== END 2020-06-22 18:47 | DRG 300 ==
LOC: D.ER 21:17 → D.CVICU 06-22 03:40
PROVIDERS: Family Medicine; ADMIT Family Medicine; ATTEND Family Medicine
PROC: 0BH17EZ Insertion of Endotracheal Airway into Trachea, Via Natural or Artificial Opening (ICD-10-PCS; principal; 2020-06-22)
DX: I71.8 Aortic aneurysm of unspecified site, ruptured (principal); I16.1 Hypertensive emergency; F17.203 Nicotine dependence unspecified, with withdrawal; E87.6 Hypokalemia; F12.10 Cannabis abuse, uncomplicated; M19.90 Unspecified osteoarthritis, unspecified site; G89.29 Other chronic pain; K21.9 Gastro-esophageal reflux disease without esophagitis; G43.909 Migraine, unspecified, not intractable, without status migrainosus; J44.9 Chronic obstructive pulmonary disease, unspecified; I10 Essential (primary) hypertension; E78.5 Hyperlipidemia, unspecified; G40.909 Epilepsy, unspecified, not intractable, without status epilepticus; F32.9 Major depressive disorder, single episode, unspecified; F41.9 Anxiety disorder, unspecified; I46.2 Cardiac arrest due to underlying cardiac condition